=== PATIENT | female | born 1955 | race Caucasian/White ===

== ENCOUNTER → 2017-02-23 | Outpatient (CLI) | payer BC ==
[~2017-02-23] MED LIST: AMBIEN10 MG PO; ATOXIMETIN-B1 CAP PO; CALCIUM600 M2 PO; ESTRACE2 MG PO; FE-TABS325 MG PO; FOLIC ACID 40400 MCG PO; GLUCOSAMINE & C1 TA1 PO; HYDROCODONE/APAP PO; IBUPROFEN800 MG PO; IMITREX50 MG PO; LISINOPRIL20 MG PO; MAGNESIUM GLYCINATE PO; NEURONTIN300 MG/CAP PO; SUDAFED 12 HOU120 MG PO; VITAMIN C PO; VITAMIN D31000 IU PO; WOMEN'S DAILY F1 TAB PO; XANAX .25M0.25 MG/TA PO
== END ==
LOC: BHSO 15:04
DX: F31.74 Bipolar disorder, in full remission, most recent episode manic (principal)